=== PATIENT | male | born 1930 | race Two or more races ===

== ENCOUNTER 2018-04-28 13:17 | Outpatient (CLI) | payer OTHER ==
[~2018-04-28 13:17] MED LIST: AVAPRO300 MG; AVODART0.5 MG; ELIQUIS2.5 MG; ERGOLOID MESYLAT1 MG; FLOVENT DI50 MCG/DIS IH; GUAIFENESIN DM118 ML PO; LEVAQUIN750 MG PO; METOPROLOL SUC100 MG; SIMVASTATIN10 MG; TOLTERODINE TART4 MG
== END 2018-04-28 15:06 | disposition home or self-care (01) ==
LOC: TOM 13:17
DX: R10.9 Unspecified abdominal pain (principal)

== ENCOUNTER 2018-09-07 12:50 | Inpatient (IN) | payer OTHER ==
[~2018-09-07] VITALS: Ht 243.8 cm; Wt 5.0 kg
[2018-09-07] MEDS ORDERED: FORTAMET500 MG (13:12)
[2018-09-07] MEDS ORDERED: PRISTIQ25 MG (13:13)
[2018-09-15] MEDS ORDERED: ELIQUIS2.5 MG PO (10:49)
[2018-09-15] MEDS ORDERED: INTEGRA F CAPS1 EACH PO (10:50)
[2018-09-15] MEDS ORDERED: AMLODIPINE BESYL5 MG PO (10:50)
[2018-09-15] MEDS ORDERED: METOPROLOL SUC100 MG PO (10:51)
[2018-09-15] MEDS ORDERED: AVAPRO300 MG PO (10:51)
[2018-09-15] MEDS ORDERED: SIMVASTATIN10 MG PO (10:52)
[2018-09-15] MEDS ORDERED: PRISTIQ25 MG PO (10:52)
[2018-09-15] MEDS ORDERED: TAMSULOSIN HCL0.4 MG PO (10:53)
[2018-09-15] MEDS ORDERED: FORTAMET500 MG PO (10:54)
[2018-09-15] MEDS ORDERED: AVODART0.5 MG PO (10:55)
[2018-09-15] MEDS ORDERED: SENOKOT-S TABL1 EACH PO (10:56)
== END 2018-09-15 12:54 | DRG 470 ==
LOC: ER 12:50 → SURG 19:34
PROVIDERS: Orthopaedic Surgery; ADMIT Internal Medicine
PROC: 4A12X4Z Monitoring of Cardiac Electrical Activity, External Approach (ICD-10-PCS; 2018-09-07)
PROC: B246ZZZ Ultrasonography of Right and Left Heart (ICD-10-PCS; 2018-09-07)
PROC: 0T9B70Z Drainage of Bladder with Drainage Device, Via Natural or Artificial Opening (ICD-10-PCS; 2018-09-07)
PROC: BW4GZZZ Ultrasonography of Pelvic Region (ICD-10-PCS; 2018-09-09)
PROC: BT43ZZZ Ultrasonography of Bilateral Kidneys (ICD-10-PCS; 2018-09-09)
PROC: BP2 Imaging, Non-Axial Upper Bones, Computerized Tomography (CT Scan) (ICD-10-PCS; 2018-09-10)
PROC: 0MBL0ZZ Excision of Right Hip Bursa and Ligament, Open Approach (ICD-10-PCS; 2018-09-11)
PROC: 0QQ40ZZ Repair Right Acetabulum, Open Approach (ICD-10-PCS; 2018-09-11)
PROC: 0SRR0JA Replacement of Right Hip Joint, Femoral Surface with Synthetic Substitute, Uncemented, Open Approach (ICD-10-PCS; principal; 2018-09-11 07:00)
DX: S72.041A Displaced fracture of base of neck of right femur, initial encounter for closed fracture (principal); N17.8 Other acute kidney failure; Q61.02 Congenital multiple renal cysts; I48.2 Chronic atrial fibrillation; Z79.01 Long term (current) use of anticoagulants; D29.1 Benign neoplasm of prostate; I25.10 Atherosclerotic heart disease of native coronary artery without angina pectoris; R34 Anuria and oliguria; R31.0 Gross hematuria; I11.9 Hypertensive heart disease without heart failure; E11.65 Type 2 diabetes mellitus with hyperglycemia; Z79.4 Long term (current) use of insulin; D72.828 Other elevated white blood cell count; Z85.820 Personal history of malignant melanoma of skin; M16.11 Unilateral primary osteoarthritis, right hip; M71.551 Other bursitis, not elsewhere classified, right hip; Z08 Encounter for follow-up examination after completed treatment for malignant neoplasm; D50.0 Iron deficiency anemia secondary to blood loss (chronic); K40.90 Unilateral inguinal hernia, without obstruction or gangrene, not specified as recurrent

== ENCOUNTER 2018-10-20 13:07 | Outpatient (CLI) | payer OTHER ==
[~2018-10-20 13:07] MED LIST changes: +AMLODIPINE BESYL5 MG PO; +AVAPRO300 MG PO; +AVODART0.5 MG PO; +ELIQUIS2.5 MG PO; +FORTAMET500 MG; +FORTAMET500 MG PO; +INTEGRA F CAPS1 EACH PO; +METOPROLOL SUC100 MG PO; +PRISTIQ25 MG; +PRISTIQ25 MG PO; +SENOKOT-S TABL1 EACH PO; +SIMVASTATIN10 MG PO; +TAMSULOSIN HCL0.4 MG PO
== END 2018-10-20 13:09 | disposition home or self-care (01) ==
LOC: NUCLEAR 13:07
DX: M81.0 Age-related osteoporosis without current pathological fracture (principal)

== ENCOUNTER 2018-12-31 09:11 | Outpatient (CLI) | payer OTHER ==
[2019-01-04] MEDS ORDERED: TAMS0.4C PO (13:58)
[2019-01-04] MEDS ORDERED: PRISTIQ25 MG PO (14:00)
== END 2018-12-31 17:00 | disposition home or self-care (01) ==
LOC: RAD 09:11
DX: R10.84 Generalized abdominal pain (principal); I10 Essential (primary) hypertension

== ENCOUNTER 2019-01-07 06:10 | Day surgery (SDC) | payer OTHER ==
[~2019-01-07 06:10] MED LIST changes: +TAMS0.4C PO
[2019-01-07] MEDS ORDERED: TYLENOL ARTHRI650 MG PO (10:43)
[2019-01-07] MEDS ORDERED: ULTRAM50 MG PO (10:43)
[2019-01-07] MEDS ORDERED: MIRALAX17 GM PO (10:43)
== END 2019-01-07 14:40 | disposition home or self-care (01) ==
LOC: CIR.AMB 06:10
DX: K40.90 Unilateral inguinal hernia, without obstruction or gangrene, not specified as recurrent (principal)

== ENCOUNTER 2019-01-07 18:54 | Emergency (ER) | payer OTHER ==
[~2019-01-07] VITALS: Ht 172.7 cm; Wt 72.6 kg
[~2019-01-07 18:54] MED LIST changes: +MIRALAX17 GM PO; +TYLENOL ARTHRI650 MG PO; +ULTRAM50 MG PO
== END 2019-01-07 20:26 | disposition home or self-care (01) ==
LOC: ER 18:54
DX: R33.8 Other retention of urine (principal)

== ENCOUNTER → 2019-09-06 | Outpatient (CLI) | payer OTHER | END | disposition home or self-care (01) | LOC: RAD 10:01 | PROVIDERS: ATTEND Internal Medicine | DX: S30.91XA Unspecified superficial injury of lower back and pelvis, initial encounter (principal); M54.5 Low back pain; M54.2 Cervicalgia; M54.6 Pain in thoracic spine ==

== ENCOUNTER → 2019-10-29 | Outpatient (CLI) | payer OTHER | END | disposition home or self-care (01) | LOC: SONOGRAMA 08:50 | PROVIDERS: ATTEND Urology | DX: R31.0 Gross hematuria (principal) ==

== ENCOUNTER → 2019-11-01 | Outpatient (CLI) | payer OTHER | END | disposition home or self-care (01) | LOC: RAD 10:13 | PROVIDERS: ATTEND Urology | DX: N20.1 Calculus of ureter (principal) ==

== ENCOUNTER 2021-08-18 15:05 | Emergency (ER) | payer OTHER ==
[~2021-08-18] VITALS: Ht 172.7 cm; Wt 71.7 kg
== END 2021-08-18 19:03 | disposition home or self-care (01) ==
LOC: ER 15:05
DX: K59.00 Constipation, unspecified (principal); I10 Essential (primary) hypertension; R55 Syncope and collapse

== ENCOUNTER 2021-09-05 23:28 | Inpatient (IN) | payer OTHER ==
[~2021-09-05] VITALS: Ht 167.6 cm; Wt 81.6 kg
--- NOTE | 2021-09-05 23:45 | NUR ---
SE RECIBE PTE ALERTA Y ORIENTADO EN AMBULANCIA. EL CUAL REFIERE HABERSE CAIDO Y GOLPEARSE LA CADERA LADO LT.
--- NOTE | 2021-09-06 00:30 | NUR ---
PTE MASCULINO EVALIUADO POR . SE NOTIFICA A PERSONAL DE RADIOLOGIA PARA XRAY Y CT.
--- NOTE | 2021-09-06 07:20 | NUR ---
SE RECIBE PACIENTE MASCULINO DESORIENTADO X3 EN SEDACION, EN CAMA #[id number] CON BARRANDAS ELEVADAS. AREA DE VENOPUNCION PATENTE MARGARITA DE EDEMA Y ENROJECIMIENTO. PACIENTE ENTUBADO CON TUBO 7.5, RESTRINGUIDO X3 Y CON GUZMAN. SE LE SEB EN TODO MOEMNTO PRIVACIDAD Y SEGURIDAD.
--- NOTE | 2021-09-06 12:39 | NUR ---
SE LE REALIZA EKG A PTE Y SE LE PRESENTA A .
[2021-09-07] MEDS ORDERED: DESVENLAFAXINE50 M3 (15:23)
[2021-09-07] MEDS ORDERED: LEVOTHYROXINE25 MC1 (15:23)
[2021-09-07] MEDS ORDERED: DUTASTERIDE0.5 MG (15:23)
[2021-09-07] MEDS ORDERED: SILODOSIN8 MG (15:23)
[2021-09-07] MEDS ORDERED: IBANDRONATE SO150 MG (15:24)
[2021-09-07] MEDS ORDERED: GABAPENTIN100 M2 (15:24)
[2021-09-10] MEDS ORDERED: ELIQUIS2.5 MG PO (07:57)
[2021-09-10] MEDS ORDERED: ULTRACET PO (07:57)
== END 2021-09-10 14:10 | disposition home or self-care (01) | DRG 522 ==
LOC: ER 23:28 → SURG 09-06 12:40 → SEC-K 09-06 12:40 → O/R 09-06 12:40 → SURG 09-07 01:28
PROVIDERS: ADMIT Orthopaedic Surgery; ATTEND Orthopaedic Surgery
PROC: 0MBM0ZZ Excision of Left Hip Bursa and Ligament, Open Approach (ICD-10-PCS; 2021-09-06)
PROC: 0SRS0J9 Replacement of Left Hip Joint, Femoral Surface with Synthetic Substitute, Cemented, Open Approach (ICD-10-PCS; principal; 2021-09-06 17:30)
DX: S72.032A Displaced midcervical fracture of left femur, initial encounter for closed fracture (principal); M80.052A Age-related osteoporosis with current pathological fracture, left femur, initial encounter for fracture; M16.12 Unilateral primary osteoarthritis, left hip; N40.0 Benign prostatic hyperplasia without lower urinary tract symptoms; Z20.822 Contact with and (suspected) exposure to COVID-19; I48.91 Unspecified atrial fibrillation; E11.9 Type 2 diabetes mellitus without complications; I10 Essential (primary) hypertension; Z79.4 Long term (current) use of insulin